=== PATIENT | female | born 1980 | race Caucasian/White ===

== ENCOUNTER 2016-12-09 23:01 | Emergency (ER) | payer MEDICAID ==
[2016-12-10 00:34] LABS: BASOPHIL % 0.6 % (0-2); PLATELET COUNT 277 x10^3mcL (130-400); RED CELL DISTRIBUTION WIDTH 13.5 % (11.5-14.5)
[2016-12-10 00:38] LABS: CALCIUM 8.1 mg/dL (8.5-10.1); CHLORIDE SERUM 104 mmol/L (98-107); CREATININE SERUM 0.8 mg/dL (0.6-1.0); GFR1 > 60 mL/min; GLUCOSE SERUM 169 mg/dL (74-106); POTASSIUM SERUM 3.5 mmol/L (3.5-5.1); SODIUM SERUM 140 mmol/L (136-145)
[2016-12-10 00:42] LABS: ALBUMIN 3.5 g/dL (3.4-5.0); ALKALINE PHOSPHATASE 63 U/L (46-116); ALT/SGPT 37 U/L (14-59); AMYLASE 43 U/L (25-115); AST/SGOT 20 U/L (15-37); BILIRUBIN TOTAL 0.2 mg/dL (0.20-1.00); LIPASE 166 IU/L (73-393); TOTAL PROTEIN, SERUM 7.6 g/dL (6.4-8.2)
[2016-12-10 01:16] LABS: UA SPECIFIC GRAVITY 1.025 (1.005-1.035); microscopic required? YES; urine erythrocyte NEGATIVE (NEGATIVE)
[2016-12-10 01:56] VITALS: BP 139/93
== END 2016-12-10 01:56 | disposition home or self-care (01) ==
LOC: ED 23:01
PROVIDERS: Emergency Medicine
DX: R10.13 Epigastric pain (principal); E11.9 Type 2 diabetes mellitus without complications; R11.10 Vomiting, unspecified